=== PATIENT | male | born 1950 | race Caucasian/White ===

== ENCOUNTER 2017-07-24 13:20 | Emergency (ER) | payer MEDICARE, BC ==
[2017-07-24 13:49] VITALS: BP 148/91
--- NOTE | 2017-07-24 14:10 | EDM.PDOC ---
ED HPI GENERAL MEDICAL PROBLEM - General Chief Complaint: ENT Problem Stated Complaint: SORE THROAT Time Seen by Provider: 07/24/17 14:04 Source of Information: Reports: Patient, Family (spouse) History Limitations: Reports: No Limitations - History of Present Illness INITIAL COMMENTS - FREE TEXT/NARRATIVE: With sore throat x 4 days. No fever. Difficulty swallowing. Otherwise feeling well. Does not doctor regularly. No exposure to strep recently. Onset: Sudden Onset Date: 07/19/17 Duration: Intermittent Location: Reports: Face Quality: Reports: Stabbing Severity: Moderate Improves with: Reports: None Worsens with: Reports: Eating Associated Symptoms: Reports: Loss of Appetite - Related Data Allergies Allergy/AdvReac Type Severity Reaction Status Date / Time No Known Allergies Allergy Verified 07/24/17 13:34 Home Meds: Home Meds NK [No Known Home Meds] 07/24/17 [History] Social & Family History - Tobacco Use Smoking Status *Q: Never Smoker ED ROS ENT - Review of Systems Review Of Systems: See Below Constitutional: Reports: Decreased Appetite HEENT: Reports: Ear Pain, Throat Pain Respiratory: Reports: No Symptoms Cardiovascular: Reports: No Symptoms Skin: Reports: No Symptoms Neurological: Reports: No Symptoms ED EXAM, ENT - Physical Exam Exam: See Below Exam Limited By: No Limitations General Appearance: Alert, WD/WN, No Apparent Distress Ears: Normal External Exam, Normal Canal, Hearing Grossly Normal, Normal TMs Nose: Normal Inspection, Normal Mucousa, No Blood Mouth/Throat: Oral Ulcers (x1 to right posterior pharynx, white with red border) Head: Atraumatic, Normocephalic Neck: Normal Inspection, Supple, Non-Tender, Full Range of Motion Course - Vital Signs Last Recorded V/S: Last Vital Signs Temp 99.5 F 07/24/17 13:42 Pulse 149 H 07/24/17 13:42 Resp 14 07/24/17 13:42 BP 148/91 H 07/24/17 13:42 Pulse Ox 98 07/24/17 13:42 - Orders/Labs/Meds Orders: Active Orders 24 hr Category Date Time Status CULTURE STREP A CONFIRMATION [RM] Stat Lab 07/24/17 13:44 Results STREP SCRN A RAPID W CULT CONF [RM] Stat Lab 07/24/17 13:44 Results Departure - Departure Time of Disposition: 14:11 Disposition: Home, Self-Care 01 Condition: Good Clinical Impression: Aphthous ulcer of mouth - Discharge Information Referrals: PCP,None [Primary Care Provider] - Additional Instructions: Rapid strep negative. Culture pending. Reviewed supportive measures. May use Aleve twice daily as needed. If not resolving followup with primary care. - Problem List & Annotations (1) Aphthous ulcer of mouth Status: Acute Priority: Low Current Visit: Yes - My Orders Last 24 Hours: My Active Orders 07/24/17 13:44 CULTURE STREP A CONFIRMATION [RM] Stat STREP SCRN A RAPID W CULT CONF [RM] Stat - Assessment/Plan Last 24 Hours: My Active Orders 07/24/17 13:44 CULTURE STREP A CONFIRMATION [RM] Stat STREP SCRN A RAPID W CULT CONF [RM] Stat
== END 2017-07-24 14:22 | disposition home or self-care (01) ==
LOC: JP.ED 13:20
DX: K12.0 Recurrent oral aphthae (principal)
CPT/HCPCS: 87081; 87430; 99283

== ENCOUNTER 2017-09-18 13:17 | Emergency (ER) | payer MEDICARE, BC ==
[2017-09-18 14:48] VITALS: BP 132/93
--- NOTE | 2017-09-18 16:52 | EDM.PDOC ---
ED HPI GENERAL MEDICAL PROBLEM - General Chief Complaint: ENT Problem Stated Complaint: INFECTED TOOTH SEEMS TO BE GETTING WORSE Time Seen by Provider: 09/18/17 15:25 Source of Information: Reports: Patient, Family History Limitations: Reports: No Limitations - History of Present Illness INITIAL COMMENTS - FREE TEXT/NARRATIVE: Tulio presents today with complaints of fatigue, not feeling well, general malaise, continued dental pain, feelings of depression without suicidal/ homicidal ideation or plan. He has been to the dentist and is currently taking amoxicillin as directed. He reports frequent use of alcohol and states this has been a problem for him in the past. He also states he is not looking forward to the anniversary of his son's and the holiday season is bad for him. He does not have a routing primary care provider. He denies fever, headache, vomiting, diarrhea, constipation, shortness of breath or chest pain. - Related Data Allergies Allergy/AdvReac Type Severity Reaction Status Date / Time No Known Allergies Allergy Verified 07/24/17 13:34 Home Meds: Home Meds Amoxicillin [Amoxicillin] 1 tab PO TID 09/18/17 [History] Past Medical History - Past Health History Medical/Surgical History: Denies Medical/Surgical History Social & Family History - Tobacco Use Smoking Status *Q: Never Smoker ED ROS GENERAL - Review of Systems Review Of Systems: See Below Constitutional: Reports: Malaise, Weakness, Fatigue, Decreased Appetite, Weight Loss, Other (Weight loss of 20 lbs since treatment for dental infections/ caries. He reports metalic taste with food and beverages. ). Denies: Fever, Chills, Diaphoresis HEENT: Reports: Dental Pain. Denies: Ear Discharge, Ear Pain, Eye Discharge, Eye Pain, Hearing Loss, Nosebleed, Nose Pain, Rhinitis, Sinus Problem, Throat Pain, Throat Swelling, Vertigo, Vision Change Respiratory: Denies: Shortness of Breath, Wheezing, Cough, Sputum, Hemoptysis Cardiovascular: Reports: Dyspnea on Exertion. Denies: Chest Pain, Blood Pressure Problem, Claudication, Edema, Lightheadedness, Orthopnea, Palpitations , PND, Syncope Endocrine: Reports: Fatigue, Polyuria GI/Abdominal: Reports: Anorexia, Decreased Appetite. Denies: Abdominal Pain, Black Stool, Bloody Stool, Constipation, Diarrhea, Difficulty Swallowing, Hematemesis, Hematochezia, Nausea, Vomiting : Reports: Frequency. Denies: Dysuria, Flank Pain, Hematuria, Incontinence, Urgency, Urinary Retention Musculoskeletal: Reports: No Symptoms Skin: Reports: Erythema, Other (edema to left face) Neurological: Reports: Weakness. Denies: Confusion, Dizziness, Headache, Numbness, Paresthesia, Tingling Psychiatric: Reports: Anxiety, Cravings, Depression, Mood Lability, Other ( Cravings and use of alcohol. ). Denies: Agitation, Hallucinations, Homicidal Ideation, Suicidal Ideation Hematologic/Lymphatic: Reports: No Symptoms Immunologic: Reports: No Symptoms ED EXAM, GENERAL - Physical Exam Exam: See Below Free Text/Narrative:: Tulio presents today with complaints of fatigue, general malaise, 20 lb weight loss in 8 weeks, difficulty with dental abscess, decay and feelings of depression. He denies hallucinations, fever, suicidal/homicidal ideation or plan. Exam Limited By: No Limitations General Appearance: Alert, WD/WN, Mild Distress Eye Exam: Bilateral Eye: EOMI, Normal Inspection, PERRL Ears: Normal External Exam, Normal Canal, Hearing Grossly Normal, Normal TMs Ear Exam: Bilateral Ear: Auricle Normal, Canal Normal, TM normal Nose: Normal Inspection, Normal Mucosa, No Blood Throat/Mouth: Normal Inspection, Normal Lips, Normal Voice, No Airway Compromise , Other (Multiple teeth missing, extensive dental decay of remaining dentition, edema to right upper bucal area, no exudate or drainage. ) Head: Atraumatic, Normocephalic, Facial Swelling, Facial Tenderness, Other (to left cheek) Neck: Normal Inspection, Supple, Non-Tender, Full Range of Motion. No: Lymphadenopathy (R), Lymphadenopathy (L) Respiratory/Chest: No Respiratory Distress, Lungs Clear, Normal Breath Sounds, No Accessory Muscle Use, Chest Non-Tender Cardiovascular: Normal Peripheral Pulses, No Edema, No Gallop, No Murmur, Tachycardia Peripheral Pulses: 2+: Radial (L), Radial (R), Dorsalis Pedis (L), Dorsalis Pedis (R) GI/Abdominal: Normal Bowel Sounds, Soft, Non-Tender, No Organomegaly, No Distention, No Mass Back Exam: Normal Inspection, Full Range of Motion. No: CVA Tenderness (R), CVA Tenderness (L) Extremities: Normal Inspection, Normal Range of Motion, Non-Tender, No Pedal Edema, Normal Capillary Refill Neurological: Alert, Oriented, CN II-XII Intact, Normal Cognition, Normal Gait, Normal Reflexes, No Motor/Sensory Deficits Psychiatric: Depressed Mood, Tearful, Other (Patient verbalizes over use of alcohol, feelings of grief and loss of the of his son 8 years ago. He reports he has not attending grief counseling or treatment for alcoholism. ) Skin Exam: Warm, Dry, Intact, Normal Color, No Rash Lymphatic: No Adenopathy EKG INTERPRETATION EKG Date: 09/18/17 Rhythm: Other (Sinus tachycardia at a rate of 103) [place]: Normal P-Wave: Present QRS: Normal ST-T: Normal QT: Normal Course - Vital Signs Last Recorded V/S: Last Vital Signs Temp 35.9 C 09/18/17 14:43 Pulse 110 H 09/18/17 14:43 Resp 14 09/18/17 14:43 BP 132/93 H 09/18/17 14:43 Pulse Ox 97 09/18/17 14:43 - Orders/Labs/Meds Orders: Active Orders 24 hr Category Date Time Status EKG Documentation Completion [RC] ASDIRECTED Care 09/18/17 15:41 Active EKG 12 Lead [EK] Routine Ther 09/18/17 15:41 Ordered Labs: Laboratory Tests 09/18/17 09/18/17 09/18/17 Range/Units 15:41 15:52 15:52 WBC 7.7 (4.5-11.0) K/uL RBC 5.08 (4.30-5.90) M/uL Hgb 16.0 H (12.0-15.0) g/dL Hct 47.1 (40.0-54.0) % MCV 93 (80-98) fL MCH 32 H (27-31) pg MCHC 34 (32-36) % Plt Count 223 (150-400) K/uL Neut % (Auto) 52 (36-66) % Lymph % (Auto) 42 (24-44) % [place] % (Auto) 6 (2-6) % Eos % (Auto) 0 L (2-4) % Baso % (Auto) 0 (0-1) % ESR 10 (0-20) mm/hr Sodium 144 (140-148) mmol/L Potassium 4.0 (3.6-5.2) mmol/L Chloride 106 (100-108) mmol/L Carbon Dioxide 25 (21-32) mmol/L Anion Gap 12.6 (5.0-14.0) mmol/L BUN 10 (7-18) mg/dL Creatinine 1.1 (0.8-1.3) mg/dL Est Cr Clr Drug Dosing TNP Estimated GFR (MDRD) > 60 (>60) Glucose 95 (74-106) mg/dL Hemoglobin A1c 5.2 (4.5-6.2) % Calcium 9.0 (8.5-10.1) mg/dL Total Bilirubin 0.6 (0.2-1.0) mg/dL AST 38 H (15-37) U/L ALT 36 (12-78) U/L Alkaline Phosphatase 87 (46-116) U/L Total Protein 7.9 (6.4-8.2) g/dL Albumin 4.1 (3.4-5.0) g/dL Globulin 3.8 H (2.3-3.5) g/dL Albumin/Globulin Ratio 1.1 L (1.2-2.2) TSH, Ultra Sensitive 1.088 (0.358-3.740) uIU/mL Lab work reviewed with patient and his , all questions answered. Meds: Medications Discontinued Medications Generic Name Dose Route Start Last Admin Trade Name Neftaly PRN Reason Stop Dose Admin Clindamycin HCl 300 mg 09/18/17 17:10 Cleocin PO 09/18/17 17:11 ONETIME ONE Departure - Departure Time of Disposition: 17:10 Disposition: Home, Self-Care 01 Condition: Fair Clinical Impression: Dental abscess, Depression, Grief at loss of child - Discharge Information Referrals: PCP,None [Primary Care Provider] - Forms: ED Department Discharge Additional Instructions: You were evaluated and treated for a dental abscess, depression, grief of loss of child in the emergency room today. All your lab work was reviewed. It is best for you to stay well hydrated, stop use of amoxicillin and start use of clindamycin 300mg by mouth four times a day for 7 days. Follow up with your dentist. An Ear Nose and Throat referral was placed for you for continued abscess. A referral to Dr. Hernandez was also placed for you to establish care with him as your primary provider (per your direction). Follow up with Dr. Hernandez for continued care, help with alcohol cessation, recent weight loss, routine screenings and health maintenance as well as cognitive behavioral health and assistance with depression. Return to the emergency room for worsening, issues or concerns. - My Orders Last 24 Hours: My Active Orders 09/18/17 15:41 EKG Documentation Completion [RC] ASDIRECTED EKG 12 Lead [EK] Routine - Assessment/Plan Last 24 Hours: My Active Orders 09/18/17 15:41 EKG Documentation Completion [RC] ASDIRECTED EKG 12 Lead [EK] Routine Assessment:: Dental abscess, Depression, Grief at loss of child Plan: Patient evaluated and treated for a dental abscess, depression, grief of loss of child in the emergency room today. All his lab work was reviewed with him and his in detail. It is best for patient to stay well hydrated, stop use of amoxicillin and start use of clindamycin 300mg by mouth four times a day for 7 days. Follow up with his dentist as directed within next 7 to 10 days. An Ear Nose and Throat referral was placed for him for continued abscess possible sinus issues. A referral to Dr. Hernandez was also placed for patient to establish care with him as his primary provider (per patient direction). Follow up with Dr. Hernandez for continued care, help with alcohol cessation, recent weight loss, routine screenings and health maintenance as well as cognitive behavioral health and assistance with depression. Suggested initiation of antidepressant to assist with depression, emotional support provided. Return to the emergency room for worsening, issues or concerns.
[2017-09-18] MEDS ORDERED: Clindamycin HCl 150 MG Cap PO ONE (17:10)
== END 2017-09-18 17:59 | disposition home or self-care (01) ==
LOC: JP.ED 13:17
DX: F43.21 Adjustment disorder with depressed mood (principal); K04.7 Periapical abscess without sinus
CPT/HCPCS: 36415; 80053; 83036; 84443; 85025; 85651; 93005; 99284; A9270; 93010; 99283